=== PATIENT | male | born 1965 | race Caucasian/White ===

== ENCOUNTER → 2016-05-24 | Outpatient (CLI) | payer OTHER | END | disposition home or self-care (01) | LOC: C.LABSPEC 18:02 | PROVIDERS: ATTEND Family Medicine | DX: E11.9 Type 2 diabetes mellitus without complications (principal) ==

== ENCOUNTER → 2016-05-24 | Outpatient (CLI) | payer OTHER ==
[2016-05-24 13:34] LABS: BASO % 0.8 %; BASO ABS # 0.09 K/uL (0-0.2); EOS % 3.6 %; HEMATOCRIT 34.1 % (42-52); IG% 0.1 %; LYMPH % 20.4 %; LYMPH ABS # 2.21 K/uL (1.2-3.4); MEAN CELL VOLUME 69.2 fL (80-100); MEAN CORPUSCULAR HEMOGLOBIN 21.3 pg (25-34); MEAN CORPUSCULAR HGB CONC 30.8 g/dl (32-36); MEAN PLATELET VOLUME 8.2 fL (7.4-10.4); MONO % 11.3 %; NEUT % 63.8 %; PLATELET COUNT 469 K/uL (130-400); RED BLOOD COUNT 4.93 M/uL (4.7-6.1); WHITE BLOOD COUNT 10.82 K/uL (4.8-10.8)
[2016-05-24 13:55] LABS: AST/SGOT 14 U/L (15-37); BLOOD UREA NITROGEN 7 mg/dl (7-18); BUN/CREATININE RATIO 9.7 (10-20); CALCIUM 8.9 mg/dl (8.5-10.1); CARBON DIOXIDE 27 mmol/L (21-32); CHLORIDE 105 mmol/L (98-107); GLUCOSE 186 mg/dl (70-99); POTASSIUM 4.1 mmol/L (3.5-5.1); SODIUM 142 mmol/L (136-145)
[2016-05-24 13:57] LABS: ESTIMATED AVERAGE GLUCOSE 180 mg/dl; HA1C FLAG Normal (Normal)
[2016-05-24 13:58] LABS: ALKALINE PHOSPHATASE 118 U/L (45-117); ALT/SGPT 21 U/L (12-78); CHOLESTEROL 148 mg/dl (0-200); CHOLESTEROL/HDL RATIO 3.9; HDL CHOLESTEROL 38 mg/dl; LDL CHOLESTEROL CALCULATED 75 mg/dl; TRIGLYCERIDES 175 mg/dl (0-150); VERY LOW DENSITY LIPOPROT CALC 35 mg/dl
[2016-05-24 13:59] LABS: COMPLETE YES; HYPOCHROMIA PRESENT; MICROCYTOSIS PRESENT; OVALOCYTES 1+
== END | disposition home or self-care (01) ==
LOC: C.LABSPEC 12:50
PROVIDERS: ATTEND Family Medicine
DX: E11.9 Type 2 diabetes mellitus without complications (principal); E78.2 Mixed hyperlipidemia; I10 Essential (primary) hypertension

== ENCOUNTER → 2016-08-22 | Outpatient (CLI) | payer OTHER ==
[2016-08-22 13:42] LABS: BASO % 0.8 %; BASO ABS # 0.08 K/uL (0-0.2); EOS % 3.8 %; HEMATOCRIT 34.2 % (42-52); IG% 0.2 %; LYMPH % 20.9 %; LYMPH ABS # 2.14 K/uL (1.2-3.4); MEAN CELL VOLUME 70.2 fL (80-100); MEAN CORPUSCULAR HEMOGLOBIN 20.9 pg (25-34); MEAN CORPUSCULAR HGB CONC 29.8 g/dl (32-36); MEAN PLATELET VOLUME 8.2 fL (7.4-10.4); MONO % 10.4 %; NEUT % 63.9 %; PLATELET COUNT 470 K/uL (130-400); RED BLOOD COUNT 4.87 M/uL (4.7-6.1); WHITE BLOOD COUNT 10.24 K/uL (4.8-10.8)
[2016-08-22 14:05] LABS: ALT/SGPT 20 U/L (12-78); AST/SGOT 14 U/L (15-37); BLOOD UREA NITROGEN 7 mg/dl (7-18); BUN/CREATININE RATIO 8.9 (10-20); CARBON DIOXIDE 29 mmol/L (21-32); CHLORIDE 103 mmol/L (98-107); CHOLESTEROL 141 mg/dl (0-200); CREATININE 0.74 mg/dl (0.60-1.40); GLUCOSE 171 mg/dl (70-99); POTASSIUM 4.3 mmol/L (3.5-5.1); SODIUM 140 mmol/L (136-145); TRIGLYCERIDES 136 mg/dl (0-150); VERY LOW DENSITY LIPOPROT CALC 27 mg/dl
[2016-08-22 14:06] LABS: ALKALINE PHOSPHATASE 110 U/L (45-117); CHOLESTEROL/HDL RATIO 3.9; HDL CHOLESTEROL 36 mg/dl; LDL CHOLESTEROL CALCULATED 78 mg/dl
[2016-08-22 14:08] LABS: ESTIMATED AVERAGE GLUCOSE 194 mg/dl; HA1C FLAG Normal (Normal)
[2016-08-22 14:11] LABS: CALCIUM 9.3 mg/dl (8.5-10.1)
[2016-08-22 14:17] LABS: COMPLETE YES; HYPOCHROMIA PRESENT; MICROCYTOSIS PRESENT; OVALOCYTES 1+
== END | disposition home or self-care (01) ==
LOC: C.LABSPEC 13:19
PROVIDERS: ATTEND Family Medicine
DX: E11.9 Type 2 diabetes mellitus without complications (principal); E78.2 Mixed hyperlipidemia; I10 Essential (primary) hypertension

== ENCOUNTER → 2016-09-20 | Outpatient (CLI) | payer OTHER ==
[2016-09-20 18:17] LABS: BASO % 0.7 %; BASO ABS # 0.08 K/uL (0-0.2); EOS % 3.8 %; HEMATOCRIT 36.2 % (42-52); IG% 0.3 %; LYMPH % 24.5 %; LYMPH ABS # 2.63 K/uL (1.2-3.4); MEAN CELL VOLUME 70.3 fL (80-100); MEAN CORPUSCULAR HEMOGLOBIN 20.6 pg (25-34); MEAN CORPUSCULAR HGB CONC 29.3 g/dl (32-36); MEAN PLATELET VOLUME 8.4 fL (7.4-10.4); MONO % 8.8 %; NEUT % 61.9 %; PLATELET COUNT 526 K/uL (130-400); RED BLOOD COUNT 5.15 M/uL (4.7-6.1); WHITE BLOOD COUNT 10.74 K/uL (4.8-10.8)
[2016-09-20 19:00] LABS: ANISOCYTOSIS PRESENT; COMPLETE YES; MICROCYTOSIS PRESENT; POLYCHROMASIA 1+
== END | disposition home or self-care (01) ==
LOC: C.LABSPEC 10:14
PROVIDERS: ATTEND Family Medicine
DX: Z00.00 Encounter for general adult medical examination without abnormal findings (principal)

== ENCOUNTER → 2016-11-23 | Outpatient (CLI) | payer OTHER ==
[2016-11-23 13:12] LABS: BASO % 0.8 %; BASO ABS # 0.08 K/uL (0-0.2); EOS % 4.4 %; HEMATOCRIT 34.3 % (42-52); IG% 0.3 %; LYMPH % 24.4 %; MEAN CELL VOLUME 68.6 fL (80-100); MEAN CORPUSCULAR HGB CONC 30.6 g/dl (32-36); MEAN PLATELET VOLUME 8.4 fL (7.4-10.4); MONO % 10.7 %; NEUT % 59.4 %; PLATELET COUNT 477 K/uL (130-400); WHITE BLOOD COUNT 9.84 K/uL (4.8-10.8)
[2016-11-23 13:29] LABS: ALB/GLOB RATIO 0.9 (0.9-2); ALKALINE PHOSPHATASE 118 U/L (45-117); ALT/SGPT 20 U/L (12-78); AST/SGOT 8 U/L (15-37); BLOOD UREA NITROGEN 5 mg/dl (7-18); BUN/CREATININE RATIO 8.2 (10-20); CALCIUM 9.2 mg/dl (8.5-10.1); CARBON DIOXIDE 27 mmol/L (21-32); CHLORIDE 104 mmol/L (98-107); CREATININE 0.64 mg/dl (0.60-1.40); GLUCOSE 176 mg/dl (70-99); HDL CHOLESTEROL 38 mg/dl; POTASSIUM 4.2 mmol/L (3.5-5.1); SODIUM 138 mmol/L (136-145)
[2016-11-23 13:30] LABS: CHOLESTEROL 126 mg/dl (0-200); CHOLESTEROL/HDL RATIO 3.3; LDL CHOLESTEROL CALCULATED 54 mg/dl; TRIGLYCERIDES 169 mg/dl (0-150); VERY LOW DENSITY LIPOPROT CALC 34 mg/dl
[2016-11-23 13:43] LABS: ESTIMATED AVERAGE GLUCOSE 209 mg/dl; HA1C FLAG Normal (Normal)
[2016-11-23 13:46] LABS: COMPLETE YES; HYPOCHROMIA PRESENT; MICROCYTOSIS PRESENT
== END | disposition home or self-care (01) ==
LOC: C.LABSPEC 12:57
PROVIDERS: ATTEND Family Medicine
DX: E11.9 Type 2 diabetes mellitus without complications (principal); I10 Essential (primary) hypertension; E78.2 Mixed hyperlipidemia

== ENCOUNTER → 2017-02-23 | Outpatient (CLI) | payer OTHER ==
[2017-02-23 18:21] LABS: EOS % 4.1 %; HEMATOCRIT 33.9 % (42-52); IG% 0.2 %; LYMPH % 19.6 %; LYMPH ABS # 1.95 K/uL (1.2-3.4); MEAN CORPUSCULAR HEMOGLOBIN 20.7 pg (25-34); MEAN CORPUSCULAR HGB CONC 29.5 g/dl (32-36); MEAN PLATELET VOLUME 8.5 fL (7.4-10.4); MONO % 11.6 %; NEUT % 63.5 %; PLATELET COUNT 437 K/uL (130-400); RED BLOOD COUNT 4.84 M/uL (4.7-6.1); WHITE BLOOD COUNT 9.93 K/uL (4.8-10.8)
[2017-02-23 18:45] LABS: COMPLETE YES; MICROCYTOSIS PRESENT
[2017-02-23 18:50] LABS: ALT/SGPT 19 U/L (12-78); BLOOD UREA NITROGEN 6 mg/dl (7-18); BUN/CREATININE RATIO 8.3 (10-20); CARBON DIOXIDE 28 mmol/L (21-32); CHLORIDE 101 mmol/L (98-107); CREATININE 0.67 mg/dl (0.60-1.40); GLUCOSE 170 mg/dl (70-99); POTASSIUM 3.9 mmol/L (3.5-5.1); SODIUM 140 mmol/L (136-145)
[2017-02-23 18:54] LABS: ALKALINE PHOSPHATASE 116 U/L (45-117); AST/SGOT 14 U/L (15-37)
[2017-02-24 06:04] LABS: ESTIMATED AVERAGE GLUCOSE 189 mg/dl; HA1C FLAG Normal (Normal)
== END | disposition home or self-care (01) ==
LOC: C.LABSPEC 17:40
PROVIDERS: ATTEND Family Medicine
DX: E11.9 Type 2 diabetes mellitus without complications (principal)

== ENCOUNTER → 2017-06-19 | Outpatient (CLI) | payer OTHER ==
[2017-06-19 18:47] LABS: ALBUMIN 3.7 gm/dl (3.4-5.0); ALT/SGPT 20 U/L (12-78); AST/SGOT 7 U/L (15-37); BLOOD UREA NITROGEN 6 mg/dl (7-18); CALCIUM 8.8 mg/dl (8.5-10.1); CARBON DIOXIDE 28 mmol/L (21-32); CHOLESTEROL 131 mg/dl (0-200); CREATININE 0.66 mg/dl (0.60-1.40); GLUCOSE 179 mg/dl (70-99); SODIUM 137 mmol/L (136-145)
[2017-06-19 18:50] LABS: ALKALINE PHOSPHATASE 98 U/L (45-117); LDL CHOLESTEROL CALCULATED 57 mg/dl; TOTAL PROTEIN 7.6 gm/dl (6.4-8.2)
[2017-06-19 19:21] LABS: HEMATOCRIT 33.5 % (42-52); MEAN CELL VOLUME 69.6 fL (80-100); MEAN CORPUSCULAR HEMOGLOBIN 20.8 pg (25-34); MEAN CORPUSCULAR HGB CONC 29.9 g/dl (32-36); MEAN PLATELET VOLUME 8.3 fL (7.4-10.4); PLATELET COUNT 453 K/uL (130-400); RED CELL DISTRIBUTION WIDTH CV 18.3 % (11.5-14.5); RED CELL DISTRIBUTION WIDTH SD 46.5 fL (36.4-46.3); WHITE BLOOD COUNT 10.34 K/uL (4.8-10.8)
[2017-06-19 19:23] LABS: BASO % 0.7 %; BASO ABS # 0.07 K/uL (0-0.2); EOS ABS # 0.52 K/uL (0-0.5); IG# 0.03 K/uL (0.00-0.02); LYMPH % 21.3 %; MONO % 12.7 %; MONO ABS # 1.31 K/uL (0.11-0.59); NEUT ABS # 6.21 K/uL (1.4-6.5)
[2017-06-20 06:50] LABS: HEMOGLOBIN A1C 8.2 % (4.5-5.6)
== END | disposition home or self-care (01) ==
LOC: C.LABSPEC 18:02
PROVIDERS: ATTEND Family Medicine
DX: E11.9 Type 2 diabetes mellitus without complications (principal); E78.2 Mixed hyperlipidemia; I10 Essential (primary) hypertension

== ENCOUNTER → 2017-11-13 | Outpatient (CLI) | payer OTHER ==
[2017-11-13 16:26] LABS: ALBUMIN 3.7 gm/dl (3.4-5.0); ALKALINE PHOSPHATASE 104 U/L (45-117); ALT/SGPT 21 U/L (12-78); AST/SGOT 11 U/L (15-37); BLOOD UREA NITROGEN 5 mg/dl (7-18); CALCIUM 8.5 mg/dl (8.5-10.1); CARBON DIOXIDE 28 mmol/L (21-32); CHOLESTEROL 132 mg/dl (0-200); CREATININE 0.65 mg/dl (0.60-1.40); GLUCOSE 208 mg/dl (70-99); LDL CHOLESTEROL CALCULATED 41 mg/dl; SODIUM 137 mmol/L (136-145); TOTAL PROTEIN 7.6 gm/dl (6.4-8.2)
[2017-11-13 17:49] LABS: HEMATOCRIT 33.4 % (42-52); HEMOGLOBIN 9.7 g/dL (14.0-18.0); MEAN CELL VOLUME 70.9 fL (80-100); MEAN CORPUSCULAR HEMOGLOBIN 20.6 pg (25-34); MEAN PLATELET VOLUME 8.7 fL (7.4-10.4); PLATELET COUNT 447 K/uL (130-400); RED CELL DISTRIBUTION WIDTH CV 18.3 % (11.5-14.5); RED CELL DISTRIBUTION WIDTH SD 46.7 fL (36.4-46.3); WHITE BLOOD COUNT 8.56 K/uL (4.8-10.8)
[2017-11-13 17:54] LABS: BASO % 0.9 %; BASO ABS # 0.08 K/uL (0-0.2); EOS % 5.1 %; EOS ABS # 0.44 K/uL (0-0.5); IG# 0.01 K/uL (0.00-0.02); LYMPH % 24.1 %; LYMPH ABS # 2.06 K/uL (1.2-3.4); MONO % 11.1 %; MONO ABS # 0.95 K/uL (0.11-0.59); NEUT % 58.7 %; NEUT ABS # 5.02 K/uL (1.4-6.5)
== END | disposition home or self-care (01) ==
LOC: C.LABSPEC 14:57
PROVIDERS: ATTEND Family Medicine
DX: E11.9 Type 2 diabetes mellitus without complications (principal); E78.2 Mixed hyperlipidemia; I10 Essential (primary) hypertension